=== PATIENT | female | born 1985 | race Caucasian/White ===

== ENCOUNTER 2017-11-17 16:39 | Observation (INO) ==
[2017-11-17] MEDS ORDERED: *HR* Dextrose 50 % in Water (Syg) 50 ML SYRINGE IVP PRN (17:15)
[2017-11-17] MEDS ORDERED: D5% in Water 1,000 ML IVC PRN (17:15)
[2017-11-17] MEDS ORDERED: Dextrose Gel 15 GM/37.5 ML TUBE PO PRN ×2 (17:15)
--- NOTE | 2017-11-17 17:57 | OB/GYN History & Physical ---
Date of Encounter: 11/17/17 Time of Encounter: 18:08 Assessment and Plan (1) 12 weeks gestation of Current visit: Yes Status: Acute (2) Diabetes in Current visit: Yes Status: Acute Plan: - Diet: diabetic diet - low dose sliding scale insulin - Accu Cheks with meals - HgA1c - consult placed to hospitalist for blood glucose control - consult placed to regulatory leader Qualifiers: Diabetes in type: gestational Qualified Code(s): O24.414 - Gestational diabetes mellitus in , insulin controlled (3) Morbid obesity Current visit: Yes Status: Acute History of Present Illness Chief complaint: uncontrolled diabetes HPI: Ms. Martinez is a 32 year old female at 12 +5 weeks directly admitted to post- floor for uncontrolled diabetes in the setting of . complicated by diabetes during , obesity, previous c- section. Patient had normal glucoses with her last child in 2012 until after delivery. Patient was on metformin for 3 months then did not follow up and has not seen a doctor in 4 years. She went for a 3 hours glucose for with a fasting of 179, 1hr 360, 2hr 323, and 3 hr 227 two days ago. Patient presented to the office today and was given her lab results and Dr. Luis brought her into the hospital for uncontrolled diabetic control. This evening at 5:30pm, her glucose was 189 2 hrs after eating. Patient admits to increase thirst. Patient is not experiencing any symptoms of blurring vision, ACKERMAN, parasthesia, abdominal pain, diarrhea, fever, chills. Patient not on insulin previously. Past Med Surg Social Fam HX - Past Medical History Medical history: no medical history Psychiatric history: no psych history - Past Surgical History Surgical History: - Social History Smoking Status: Never smoker Smokeless Tobacco Status: No Alcohol use: none Drug use: none - Family History Father Hx Family Endocrine Disorder: Yes Sister Hx Family Reproductive Disorders: Yes (OV Ca) Obstetrical History - Pregnancies : 2 Para: 1 Term: 1 : 0 Ab's: 0 Livin - History/Complications History/Complications: Total pregnancies 2. Total living children 1. C section(s) 1. # 1: Repeat ,01/18/13,female,7 lbs 11 oz, bottle/breast feeding, ,. Medications and Allergies Ondansetron ODT [Zofran ODT] 8 mg SL Q6HR PRN #20 tab.rapdis 04/15/17 [Rx] Sulfamethoxazole/Trimeth DS [Bactrim DS] 1 each PO BID 7 Days tablet 04/16/17 [ Rx] Cephalexin [Keflex] 500 mg PO BID #14 capsule 10/29/17 [Rx] 3 Allergy/AdvReac Type Severity Reaction Status Date / Time No Known Allergies Allergy Verified 10/28/17 23:38 Review of System OB All systems PM: reviewed and no additional remarkable complaints except as stated Results Result Diagrams: 11/17/17 17:50 11/17/17 17:50 All other labs normal.
[2017-11-17] MEDS ORDERED: Insulin LISPRO 300 UNITS/3 ML VIAL SQ SCH (18:00)
[2017-11-17 18:22] LABS: BUN/Creatinine Ratio 15 (6-26); Blood Urea Nitrogen 10 mg/dL (6-20); Carbon Dioxide 21 mEq/L (23-29); Chloride 106 mEq/L (98-107); Glucose 199 mg/dL (70-105); Osmolality,Calculated 287 (280-300); Potassium 3.9 mEq/L (3.5-5.1); Sodium 136 mEq/L (136-145); eGFR For African Americans > 60 (> 60); eGFR For Non-African Americans > 60 (> 60)
[2017-11-17 18:23] LABS: Uric Acid 3.1 mg/dL (2.3-7.6)
[2017-11-17 18:30] LABS: Hemoglobin A1C 8.2 %
[2017-11-17 18:34] LABS: Basophils % 0.5 %; Eosinophils % 0.3 %; Immature Granulocytes % 0.2 % (0-4); Lymphocytes # 2.3 K/mcL (0.6-4.6); Lymphocytes % 36.3 %; Mean Corpuscular HGB Conc 33.3 g/dL (31.6-35.5); Mean Corpuscular Hemoglobin 29.7 pg (28.0-33.3); Mean Platelet Volume 10.2 fL (9.4-12.4); Monocytes # 0.4 K/mcL (0.0-1.3); Monocytes % 6.5 %; Neutrophils # 3.5 K/mcL (1.6-8.9); Nucleated Red Blood Cells 0.3 /100 WBC (0); Platelet Count 212 K/mcL (140-400); Red Blood Count 4.38 M/mcL (3.82-4.97); Red Cell Distribution Width 13.4 % (11.5-14.5); Segmented Neutrophils % 56.2 %
--- NOTE | 2017-11-17 21:52 | Internal Medicine Consult Note ---
Date of Encounter: 11/17/17 Time of Encounter: 21:49 - Assessment and Plan (1) Diabetes in Current Visit: Yes Status: Acute Assessment and plan: naive to insulin. D/w OB wish to hold metformin due to will attempt to control with ISS. Will start low dose for now AC/HS and titrate up as needed. diabetic education in the morning, diabetic diet once better may follow up outpatient for continued sugar control and check Qualifiers: Diabetes in type: gestational Qualified Code(s): O24.414 - Gestational diabetes mellitus in , insulin controlled (2) Morbid obesity Current Visit: Yes Status: Acute Assessment and plan: diet control, lifestyle mod will help with DM Internal Medicine - CN: HPI - Data of Consult Patient: new to practice Consult date: 11/17/17 Requesting Physician: Garret Luis MD - Consult Narrative Reason for consult: High sugar History of present illness: Ms. Martinez is a 32 year old female who is 13 weeks who presents for associated DMII. HbA1c measured in the ED recorded 8.2. She had been diabetic post- during her first in 2012 and had been placed on metformin for approx 1 month. After the month, her sugar apparently improved and had been off diabetic meds then. She had been doing well until routine check today in the clinic where her sugar was found to be high. She is otherwise asymptomatic. Past Med Surg Social Fam HX - Past Medical History Medical history: no medical history Psychiatric history: no psych history - Past Surgical History Surgical History: - Social History Smoking Status: Never smoker Smokeless Tobacco Status: No Alcohol use: none Drug use: none - Family History Father Hx Family Endocrine Disorder: Yes Sister Hx Family Reproductive Disorders: Yes (OV Ca) Review of systems: ROS 14 point review of systems reviewed as best as possible given presentation. Pertinent positive or negative as per HPI or otherwise reviewed as negative Internal Medicine - CN: Meds Ondansetron ODT [Zofran ODT] 8 mg SL Q6HR PRN #20 tab.rapdis 04/15/17 [Rx] Sulfamethoxazole/Trimeth DS [Bactrim DS] 1 each PO BID 7 Days tablet 04/16/17 [ Rx] Cephalexin [Keflex] 500 mg PO BID #14 capsule 10/29/17 [Rx] 3 Allergy/AdvReac Type Severity Reaction Status Date / Time No Known Allergies Allergy Verified 10/28/17 23:38 Internal Medicine - CN: Exam - Constitutional Vitals: Temp Pulse Resp BP Pulse Ox 98.3 F 95 16 131/84 99 11/17/17 20:00 11/17/17 20:00 11/17/17 20:00 11/17/17 20:00 11/17/17 20:00 Exam: General - AAO x 3 Psych - Appropriate affect/speech. No agitation Heart - Sinus. RRR. S1 and S2 present. No added HS/murmurs appreciated. No elevated JVD appreciated. Lung - Adequate air entry b/l, No crackles/wheezes appreciated GI - . Soft, non-tender. No hepatosplenomegaly/ascites. BS+ - No CVA/suprapubic tenderness or palpable bladder distension Skin - Intact. No rash/petechiae/ecchymosis. Warm extremities MSK - Joints with normal ROM. No joint swellings Internal Medicine - CN: Reslt - Labs CBC & Chem 7: 11/17/17 17:50 11/17/17 17:50 Labs: Short CBC 11/17/17 Range/Units 17:50 WBC 6.3 (4.3-11.1) K/mcL Hgb 13.0 (11.5-15.4) g/dL Hct 39.0 (35.3-44.9) % Plt Count 212 (140-400) K/mcL Neutrophils # 3.5 (1.6-8.9) K/mcL BMP 11/17/17 11/17/17 17:50 17:50 Sodium 136 Potassium 3.9 Chloride 106 Carbon Dioxide 21 L BUN 10 Creatinine 0.68 0.68 Glucose 199 H Calcium 9.0 Liver Function 11/17/17 Range/Units 17:50 AST 12 L (13-39) Units/L ALT 16 (7-52) Units/L Consult Discharge Plan - Plan Referrals: NONE,PCP [Primary Care Provider] -
[2017-11-18] MEDS: Insulin LISPRO 300 UNITS/3 ML VIAL SQ SCH ×2 (07:58→11:46)
[2017-11-18 08:40] VITALS: BP 134/87
[2017-11-18 11:34] LABS: Varicella Zoster IgG Antibody Positive
--- NOTE | 2017-11-18 11:35 | OB/GYN Progress Note ---
Date of Encounter: 11/18/17 Time of Encounter: 11:32 - Assessment and Plan (1) Diabetes in Current Visit: Yes Status: Acute Continue with recommendation per hospitalist. manifest/order organizer print orders to see patient today Follow up in office and with MFM Anticipate discharge home tomorrow Qualifiers: Diabetes in type: gestational Gestational diabetes mellitus control: insulin-controlled Trimester: first trimester Qualified Code(s): O24.414 - Gestational diabetes mellitus in , insulin controlled (2) 12 weeks gestation of Current Visit: Yes Status: Acute (3) Morbid obesity Current Visit: Yes Status: Acute Subjective - Subjective Principal diagnosis: Uncontrolled Diabetes Interval history: Ms Bey states she is feeling well. She denies any headaches, vision changes, epigastric pain, chest pain, vaginal bleeding, cramping, and vaginal discharge. She is agreeable to the plan of care. Antepartum ROS: no new complaints, no loss of fluid, no vaginal bleeding, no contractions Objective - Vital Signs Vital Signs: Vital Signs Temp Pulse Resp BP Pulse Ox 11/18/17 07:40 98.2 F 87 12 134/87 98 11/17/17 20:00 98.3 F 95 16 131/84 99 11/17/17 19:30 14 11/17/17 16:45 98.5 F 105 18 125/73 99 Intake and Output 11/17/17 11/18/17 11/18/17 23:59 07:59 15:59 Intake Total 200 / 200 200 / 200 Output Total 300 / 300 970 / 970 Balance -100 / -100 -770 / -770 Intake: Oral 200 / 200 200 / 200 Output: Urine 300 / 300 970 / 970 Other: Meal Dinner Percent of Meal Consumed 50% Weight 120.656 kg 119.4 kg Blood Glucose* 188 152 Patient Weight 11/18/17 23:59 Weight 119.4 kg - Exam FHR: other FHR comments: 12 week gestation, obese, unable to hear tones. Auscultation: bilateral: normal Abdomen: Present: normal appearance, soft, gravid Uterus: Present: normal. Absent: firm - Labs Labs: Abnormal lab results Nucleated RBCs/100 WBC 0.3 /100 WBC (0) H 11/17/17 17:50 Carbon Dioxide 21 mEq/L (23-29) L 11/17/17 17:50 Glucose 199 mg/dL (70-105) H 11/17/17 17:50 POC Glucose 152 (58-89) H 11/18/17 07:51 Hemoglobin A1c 8.2 % (-5.6) H 11/17/17 17:50 AST 12 Units/L (13-39) L 11/17/17 17:50 Lactate Dehydrogenase 122 Units/L (140-271) L 11/17/17 17:50
[2017-11-18 11:41] LABS: Rubella IgG Antibody Equivocal (POSITIVE)
--- NOTE | 2017-11-18 13:21 | Discharge Summary ---
Date of Encounter: 11/18/17 Time of Encounter: 13:20 - Discharge Diagnosis (1) Diabetes in Priority: Primary Status: Acute Qualifiers: Diabetes in type: gestational Gestational diabetes mellitus control: insulin-controlled Trimester: first trimester Qualified Code(s): O24.414 - Gestational diabetes mellitus in , insulin controlled (2) 12 weeks gestation of Priority: Secondary Status: Acute (3) Morbid obesity Priority: Secondary Status: Acute - Discharge Medications Prescriptions: Alcohol Antiseptic Pads [Pro Comfort Alcohol Pads] 1 each TP ACHS #120 med..pad Blood Sugar Diagnostic, Drum [Accu-Chek Compact] 1 each MC ACHS #120 strip Blood-Glucose Meter, Drum-Type [Accu-Chek] 1 each MC ACHS #1 kit Insulin ASPART [Novolog Flexpen] 2 unit SQ ACHS #1 insuln.pen Lancets [Accu-Chek Safe-T-Pro] 1 each MC ACHS #120 each Home Medications: Ondansetron ODT [Zofran ODT] 8 mg SL Q6HR PRN #20 tab.rapdis 04/15/17 [Rx] Sulfamethoxazole/Trimeth DS [Bactrim DS] 1 each PO BID 7 Days tablet 04/16/17 [ Rx] Cephalexin [Keflex] 500 mg PO BID #14 capsule 10/29/17 [Rx] Alcohol Antiseptic Pads [Pro Comfort Alcohol Pads] 1 each TP ACHS #120 med..pad 11/18/17 [Rx] Blood Sugar Diagnostic, Drum [Accu-Chek Compact] 1 each ACHS #120 strip 11/18 [Rx] Blood-Glucose Meter, Drum-Type [Accu-Chek] 1 each ACHS #1 kit 11/18/17 [Rx] Insulin ASPART [Novolog Flexpen] 2 unit SQ ACHS #1 insuln.pen 11/18/17 [Rx] Lancets [Accu-Chek Safe-T-Pro] 1 each MC ACHS #120 each 11/18/17 [Rx] Allergies/Adverse Reactions: 3 Allergy/AdvReac Type Severity Reaction Status Date / Time No Known Allergies Allergy Verified 10/28/17 23:38 Data Procedures and tests throughout hospitalization: Laboratory Tests 11/17/17 11/17/17 11/17/17 17:38 17:50 17:50 WBC 6.3 RBC 4.38 Hgb 13.0 Hct 39.0 MCV 89.0 MCH 29.7 MCHC 33.3 RDW 13.4 Plt Count 212 MPV 10.2 Immature Gran % 0.2 Seg Neutrophils % 56.2 Lymphocytes % 36.3 Monocytes % 6.5 Eosinophils % 0.3 Basophils % 0.5 Neutrophils # 3.5 Lymphocytes # 2.3 Monocytes # 0.4 Eosinophils # 0.0 Basophils # 0.0 Nucleated RBCs/100 WBC 0.3 H Sodium Potassium Chloride Carbon Dioxide BUN Creatinine 0.68 Est GFR ( Amer) Est GFR (Non-Af Amer) BUN/Creatinine Ratio Glucose POC Glucose 188 H Est Mean Plasma Glucose Hemoglobin A1c Calculated Osmolality Uric Acid 3.1 Calcium AST 12 L ALT 16 Lactate Dehydrogenase 122 L T.pallidum Ab Interpret Hep Bs Antigen Rubella IgG Antibody VZV IgG Antibody Blood Type Antibody Screen 11/17/17 11/17/17 11/17/17 17:50 17:50 17:50 WBC RBC Hgb Hct MCV MCH MCHC RDW Plt Count MPV Immature Gran % Seg Neutrophils % Lymphocytes % Monocytes % Eosinophils % Basophils % Neutrophils # Lymphocytes # Monocytes # Eosinophils # Basophils # Nucleated RBCs/100 WBC Sodium Potassium Chloride Carbon Dioxide BUN Creatinine Est GFR ( Amer) Est GFR (Non-Af Amer) BUN/Creatinine Ratio Glucose POC Glucose Est Mean Plasma Glucose 189 Hemoglobin A1c 8.2 H Calculated Osmolality Uric Acid Calcium AST ALT Lactate Dehydrogenase T.pallidum Ab Interpret Negative Hep Bs Antigen Rubella IgG Antibody Equivocal L VZV IgG Antibody Positive Blood Type A POSITIVE Antibody Screen NEGATIVE 11/17/17 11/17/17 11/18/17 17:50 17:50 07:51 WBC RBC Hgb Hct MCV MCH MCHC RDW Plt Count MPV Immature Gran % Seg Neutrophils % Lymphocytes % Monocytes % Eosinophils % Basophils % Neutrophils # Lymphocytes # Monocytes # Eosinophils # Basophils # Nucleated RBCs/100 WBC Sodium 136 Potassium 3.9 Chloride 106 Carbon Dioxide 21 L BUN 10 Creatinine 0.68 Est GFR ( Amer) > 60 Est GFR (Non-Af Amer) > 60 BUN/Creatinine Ratio 15 Glucose 199 H POC Glucose 152 H Est Mean Plasma Glucose Hemoglobin A1c Calculated Osmolality 287 Uric Acid Calcium 9.0 AST ALT Lactate Dehydrogenase T.pallidum Ab Interpret Hep Bs Antigen Nonreactive Rubella IgG Antibody VZV IgG Antibody Blood Type Antibody Screen 11/18/17 11:35 WBC RBC Hgb Hct MCV MCH MCHC RDW Plt Count MPV Immature Gran % Seg Neutrophils % Lymphocytes % Monocytes % Eosinophils % Basophils % Neutrophils # Lymphocytes # Monocytes # Eosinophils # Basophils # Nucleated RBCs/100 WBC Sodium Potassium Chloride Carbon Dioxide BUN Creatinine Est GFR ( Amer) Est GFR (Non-Af Amer) BUN/Creatinine Ratio Glucose POC Glucose 147 H Est Mean Plasma Glucose Hemoglobin A1c Calculated Osmolality Uric Acid Calcium AST ALT Lactate Dehydrogenase T.pallidum Ab Interpret Hep Bs Antigen Rubella IgG Antibody VZV IgG Antibody Blood Type Antibody Screen Labs on day of discharge: Labs from last 24 hours 11/18/17 11/18/17 11/17/17 11:35 07:51 17:50 WBC RBC Hgb Hct MCV MCH MCHC RDW Plt Count MPV Immature Gran % Seg Neutrophils % Lymphocytes % Monocytes % Eosinophils % Basophils % Neutrophils # Lymphocytes # Monocytes # Eosinophils # Basophils # Nucleated RBCs/100 WBC Sodium Potassium Chloride Carbon Dioxide BUN Creatinine Est GFR ( Amer) Est GFR (Non-Af Amer) BUN/Creatinine Ratio Glucose POC Glucose 147 H 152 H Est Mean Plasma Glucose Hemoglobin A1c Calculated Osmolality Uric Acid Calcium AST ALT Lactate Dehydrogenase T.pallidum Ab Interpret Hep Bs Antigen Nonreactive Rubella IgG Antibody VZV IgG Antibody Blood Type Antibody Screen 11/17/17 11/17/17 11/17/17 17:50 17:50 17:50 WBC RBC Hgb Hct MCV MCH MCHC RDW Plt Count MPV Immature Gran % Seg Neutrophils % Lymphocytes % Monocytes % Eosinophils % Basophils % Neutrophils # Lymphocytes # Monocytes # Eosinophils # Basophils # Nucleated RBCs/100 WBC Sodium 136 Potassium 3.9 Chloride 106 Carbon Dioxide 21 L BUN 10 Creatinine 0.68 Est GFR ( Amer) > 60 Est GFR (Non-Af Amer) > 60 BUN/Creatinine Ratio 15 Glucose 199 H POC Glucose Est Mean Plasma Glucose Hemoglobin A1c Calculated Osmolality 287 Uric Acid Calcium 9.0 AST ALT Lactate Dehydrogenase T.pallidum Ab Interpret Negative Hep Bs Antigen Rubella IgG Antibody Equivocal L VZV IgG Antibody Positive Blood Type A POSITIVE Antibody Screen NEGATIVE 11/17/17 11/17/17 11/17/17 17:50 17:50 17:50 WBC 6.3 RBC 4.38 Hgb 13.0 Hct 39.0 MCV 89.0 MCH 29.7 MCHC 33.3 RDW 13.4 Plt Count 212 MPV 10.2 Immature Gran % 0.2 Seg Neutrophils % 56.2 Lymphocytes % 36.3 Monocytes % 6.5 Eosinophils % 0.3 Basophils % 0.5 Neutrophils # 3.5 Lymphocytes # 2.3 Monocytes # 0.4 Eosinophils # 0.0 Basophils # 0.0 Nucleated RBCs/100 WBC 0.3 H Sodium Potassium Chloride Carbon Dioxide BUN Creatinine 0.68 Est GFR ( Amer) Est GFR (Non-Af Amer) BUN/Creatinine Ratio Glucose POC Glucose Est Mean Plasma Glucose 189 Hemoglobin A1c 8.2 H Calculated Osmolality Uric Acid 3.1 Calcium AST 12 L ALT 16 Lactate Dehydrogenase 122 L T.pallidum Ab Interpret Hep Bs Antigen Rubella IgG Antibody VZV IgG Antibody Blood Type Antibody Screen 11/17/17 17:38 WBC RBC Hgb Hct MCV MCH MCHC RDW Plt Count MPV Immature Gran % Seg Neutrophils % Lymphocytes % Monocytes % Eosinophils % Basophils % Neutrophils # Lymphocytes # Monocytes # Eosinophils # Basophils # Nucleated RBCs/100 WBC Sodium Potassium Chloride Carbon Dioxide BUN Creatinine Est GFR ( Amer) Est GFR (Non-Af Amer) BUN/Creatinine Ratio Glucose POC Glucose 188 H Est Mean Plasma Glucose Hemoglobin A1c Calculated Osmolality Uric Acid Calcium AST ALT Lactate Dehydrogenase T.pallidum Ab Interpret Hep Bs Antigen Rubella IgG Antibody VZV IgG Antibody Blood Type Antibody Screen Date of admission: 11/17/17 16:39 Primary care physician: PCP NONE Consults: 11/17/17 17:15 Consult to Supervisor Small [employer]liance Assembly [CONS] Routine Comment: Reason for Consult: new diabetic who is 13 weeks . Previous gestational diabetes 11/17/17 21:50 Consult to Hospitalist [CONS] Routine Consulting Provider: Hospitalist Radha Reason for Consult: uncontrolled diabetes Time Notified: 09:20 Call Completed: Yes Discharging clinician: Sonia Almeida Anticipated date of discharge: 11/18/17 - Patient Status Disposition: Home, Self-Care Condition: Good Functional capacity at discharge: independent ambulation Overall status at discharge: patient is progressing back to baseline - Discharge Instructions Follow Up With: NONE,PCP [Primary Care Provider] - Garret Luis MD [Partnered Physician] - - Diet and Activity Activity: resume usual activities as tolerated Diet: diabetic diet Hospital Course INVESTIGATOR UTILITY BILL COMPLAINTS Reason for admission: other (Blood sugar control) Time Attestation: Total time spent providing and/or coordinating discharge services: Time Spent: Less than 30 minutes Exam - Constitutional Vitals: Temp Pulse Resp BP Pulse Ox 98.2 F 87 12 134/87 98 11/18/17 07:40 11/18/17 07:40 11/18/17 07:40 11/18/17 07:40 11/18/17 07:40
--- NOTE | 2017-11-18 14:31 | Internal Med Progress Note ---
Date of Encounter: 11/18/17 Time of Encounter: 13:00 - Assessment and plan (1) Diabetes in Current Visit: Yes Status: Acute Assessment and plan: Patient being treated with insulin. She has received 2 units of pre-meal insulin based on her blood sugars per the low correctional sliding scale. Her blood sugars are ranging between 140 and 150. I believe this is currently acceptable baseline to start her insulin regimen at. Preferably she can be discharged on medium or long-acting insulin at 10-15 units per day. However her insurance insurance appears to require prior authorization which may delay her care. As such, she may be discharged on short-acting insulin at the doses that she is currently receiving with changes to be made as outpatient. We will also provide prescriptions for glucometer, blood glucose strips, lancets and alcohol swabs. I recommend she check her blood sugars before meals and at bedtime. She needs close follow-up with her shearing shed worker in clinic to better adjust her insulin regimen based on her response. Qualifiers: Diabetes in type: gestational Gestational diabetes mellitus control: insulin-controlled Trimester: first trimester Qualified Code(s): O24.414 - Gestational diabetes mellitus in , insulin controlled (2) 12 weeks gestation of Current Visit: Yes Status: Acute - Subjective Interval history: Patient is doing well at this time. Tolerating oral diet. No new complaints at this time - Constitutional Vitals: Temp Pulse Resp BP Pulse Ox 98.2 F 87 12 134/87 98 11/18/17 07:40 11/18/17 07:40 11/18/17 07:40 11/18/17 07:40 11/18/17 07:40 General appearance: Present: cooperative, A&O X 3, obese, answers questions appropriately - Respiratory Respiratory exam: Present: CTAB. Absent: accessory muscle use, rales, rhonchi, wheezes - Cardiovascular Cardiovascular exam: Present: RRR, +S1, +S2. Absent: diastolic murmur, gallop, rubs, systolic murmur - GI/Abdominal GI/Abdominal exam: Present: normal bowel sounds, soft, no peritoneal signs. Absent: distended, tenderness Internal Medicine: Result - Labs CBC & Chem 7: 11/17/17 17:50 11/17/17 17:50 Labs: Short CBC 11/17/17 Range/Units 17:50 WBC 6.3 (4.3-11.1) K/mcL Hgb 13.0 (11.5-15.4) g/dL Hct 39.0 (35.3-44.9) % Plt Count 212 (140-400) K/mcL Neutrophils # 3.5 (1.6-8.9) K/mcL BMP 11/17/17 11/17/17 17:50 17:50 Sodium 136 Potassium 3.9 Chloride 106 Carbon Dioxide 21 L BUN 10 Creatinine 0.68 0.68 Glucose 199 H Calcium 9.0 Liver Function 11/17/17 Range/Units 17:50 AST 12 L (13-39) Units/L ALT 16 (7-52) Units/L Consult Discharge Plan - Plan Referrals: NONE,PCP [Primary Care Provider] - Garret Luis MD [Partnered Physician] - Prescriptions: Alcohol Antiseptic Pads [Pro Comfort Alcohol Pads] 1 each ACHS #120 med..pad Blood Sugar Diagnostic, Drum [Accu-Chek Compact] 1 each ACHS #120 strip Blood-Glucose Meter, Drum-Type [Accu-Chek] 1 each ACHS #1 kit Insulin LISPRO [HumaLOG] 4 units SQ TIDWM #1 vial Insulin NPH [HumuLIN NPH] 10 unit SQ QAM AND QHS #1 vial Lancets [Accu-Chek Safe-T-Pro] 1 each ACHS #120 each Syrge-Ndl,Ins 0.3 ml Half Jason [Insulin Syringe] 1 each 5-6XD #1 tub
[2017-11-18] MEDS ORDERED: Insulin LISPRO 300 UNITS/3 ML VIAL SQ SCH (21:00)
== END 2017-11-18 16:15 | disposition home or self-care (01) ==
LOC: 1NENUOBS
PROVIDERS: ADMIT Obstetrics & Gynecology; ATTEND Obstetrics & Gynecology

== ENCOUNTER 2018-05-18 10:02 | Inpatient (IN) ==
[~2018-05-18 10:02] MED LIST: Methylergonovine 0.2 MG/ML AMPUL IM ONE
[2018-05-18] MEDS ORDERED: Ringers Solution, Lactated 1,000 ML ONE ×2 (10:31→12:11)
[2018-05-18] MEDS ORDERED: Naloxone 0.4 MG/ML INJ IVP PRN ×2 (10:47→12:07)
[2018-05-18] MEDS ORDERED: Famotidine 20 MG/2 ML VIAL IVP PRN (10:47)
[2018-05-18] MEDS ORDERED: CeFAZolin Syr 3,000MG/30 ML 3,000 MG/30 ML SYRINGE IVPB ONE (11:02)
[2018-05-18] MEDS ORDERED: Metoclopramide 10 MG/2 ML VIAL IVP ONE (11:03)
[2018-05-18 11:16] LABS: Basophils % 0.4 %; Eosinophils % 0.5 %; Hematocrit 37.1 % (35.3-44.9); Hemoglobin 12.4 g/dL (11.5-15.4); Immature Granulocytes % 0.5 % (0-4); Lymphocytes # 2.3 K/mcL (0.6-4.6); Mean Corpuscular HGB Conc 33.4 g/dL (31.6-35.5); Mean Corpuscular Hemoglobin 30.1 pg (28.0-33.3); Mean Platelet Volume 11.2 fL (9.4-12.4); Monocytes # 0.5 K/mcL (0.0-1.3); Monocytes % 6.2 %; Neutrophils # 5.2 K/mcL (1.6-8.9); Platelet Count 177 K/mcL (140-400); Red Blood Count 4.12 M/mcL (3.82-4.97); Red Cell Distribution Width 14.8 % (11.5-14.5); Segmented Neutrophils % 64.4 %
[2018-05-18] MEDS ORDERED: Ringers Solution, Lactated 1,000 ML IVC ONE (11:18)
[2018-05-18] MEDS ORDERED: 0.9 % Sodium Chloride 1,000 ML ONE (11:27)
[2018-05-18] MEDS ORDERED: Ringers Solution, Lactated 1,000 ML IVC SCH ×2 (11:30→12:15)
[2018-05-18 11:48] LABS: Amphetamine Screen,Urine Negative ng/mL (Cutoff=1000); Barbiturate Screen,Urine Negative ng/mL (Cutoff=200); Benzodiazepines Screen,Urine Negative ng/mL (Cutoff=200); Cannabinoid Screen,Urine Negative ng/mL (Cutoff = 50); Cocaine Screen,Urine Negative ng/mL (Cutoff= 300); Opiate Screen,Urine Negative ng/mL (Cutoff=300); Phencyclidine Screen,Urine Negative ng/mL (Cutoff=25)
--- NOTE | 2018-05-18 11:58 | Anesthesia Evaluation PreOp ---
Date of Encounter: 05/18/18 Time of Encounter: 11:56 - Past History Planned Operation: Csection/spinal Cardiac History: HTN (with ) Pulmonary History: Denies Any Significant HX, ROB Dx (probable, undiagnosed) CRM DYNAMICS DEVELOPER History: Denies Any Significant HX Other Medical History: Other (Gestational diabetes, insulin dependent, Morbid Obesity) Anesthesia History: No Prior Anesthetic Complications, Past Anesthesia ( previous csection, no general anesthesthetic history, no family history of anesthetic related deaths) : Yes Alcohol Use: none Drug use: none Medications and Allergies Ondansetron ODT [Zofran ODT] 8 mg SL Q6HR PRN #20 tab.rapdis 04/15/17 [Rx] Sulfamethoxazole/Trimeth DS [Bactrim DS] 1 each PO BID 7 Days tablet 04/16/17 [ Rx] Cephalexin [Keflex] 500 mg PO BID #14 capsule 10/29/17 [Rx] Alcohol Antiseptic Pads [Pro Comfort Alcohol Pads] 1 each ACHS #120 med..pad 11/18/17 [Rx] Blood Sugar Diagnostic, Drum [Accu-Chek Compact] 1 each ACHS #120 strip 11/18 [Rx] Blood-Glucose Meter, Drum-Type [Accu-Chek] 1 each ACHS #1 kit 11/18/17 [Rx] Insulin LISPRO [HumaLOG] 4 units SQ TIDWM #1 vial 11/18/17 [Rx] Insulin NPH [HumuLIN NPH] 10 unit SQ QAM AND QHS #1 vial 11/18/17 [Rx] Lancets [Accu-Chek Safe-T-Pro] 1 each ACHS #120 each 11/18/17 [Rx] Syrge-Ndl,Ins 0.3 ml Half Jason [Insulin Syringe] 1 each 5-6XD #1 tub [Rx] Amoxicillin 875 mg PO BID #20 tablet 02/21/18 [Rx] Guaifenesin [Mucinex] 600 mg PO BID #20 tab.er.12h 02/21/18 [Rx] Loratadine [Allergy Relief] 10 mg PO DAILY #30 tablet 02/21/18 [Rx] Adult Aspirin 05/18/18 [History] 3 Allergy/AdvReac Type Severity Reaction Status Date / Time No Known Allergies Allergy Verified 02/21/18 19:47 - Meds/Allergy Pre-op Review Medications Reviewed: Yes Allergies Reviewed: Yes Beta Blockers on Current Med List: No Anesthesia Results - Labs 05/18/18 10:38 05/18/18 10:38 Anesthesia Exam BP 136/86 P 96 R 16 T 97.5 Blood glucose: 80 Height: 5'4" Weight: 138.6kg NPO (# of Hours): 12 Pain Scale: 0 Pain Scale Used: Numeric (1 - 10) - HEENT Pupil (Motor): Pupils equal Mallampati: II Teeth: Normal Oral Opening: Greater than 3 - CRM DYNAMICS DEVELOPER LOC: Oriented CRM DYNAMICS DEVELOPER Motor: Normal RUE, Normal LUE, Normal RLE, Normal LLE, Normal Face CRM DYNAMICS DEVELOPER Sensory: Normal: RUE, LUE, RLE, LLE, Face - Cardiac Rhythm: Regular Murmur: None JVD: No Carotid Bruit: No - Pulmonary Breath Sounds: bilateral Clear Respiratory Effort: Symmetrical Anesthesia Assess/Plan ASA Score: 3 Modified John Paul Scale for Level of Consciousness: Cooperative, oriented, and tranquil Anesthetic Plan: Regional Autologous Blood: No Monitoring Plan: Standard Monitors Recovery Plan: PACU
[2018-05-18] MEDS ORDERED: Acetaminophen IV 1,000 MG/100 ML INFUS..BTL IVPB ONE (12:06)
[2018-05-18] MEDS ORDERED: *HR* OxyCODONE Immed Rel 5 MG TABLET PO PRN (12:06)
[2018-05-18] MEDS ORDERED: *HR* Labetalol 20 MG/4 ML SYRINGE IVP PRN (12:07)
[2018-05-18] MEDS ORDERED: *HR* Meperidine 25 MG/ML SYRINGE IVP PRN (12:07)
[2018-05-18] MEDS ORDERED: *HR* Promethazine 25 MG/ML VIAL IVP PRN (12:07)
[2018-05-18] MEDS ORDERED: Ondansetron 4 MG/2 ML VIAL IVP ONE (12:07)
[2018-05-18] MEDS ORDERED: Bupivacaine/PF 0.75% in Dex 2 ML AMPUL INFILT ONE (12:10)
[2018-05-18] MEDS ORDERED: Lidocaine -MPF 1% 5 ML AMPUL ONE (12:10)
[2018-05-18] MEDS ORDERED: Morphine Sulfate/PF 5mg/10mL Vial ONE (12:14)
--- NOTE | 2018-05-18 12:28 | OB/GYN History & Physical ---
Date of Encounter: 05/18/18 Time of Encounter: 12:21 Assessment and Plan (1) 38 weeks gestation of Current visit: Yes Status: Acute (2) Gestational diabetes mellitus (GDM) requiring insulin Current visit: Yes Status: Acute Admit to labor and delivery Scheduled section Anticipate length of stay 2 days History of Present Illness Chief complaint: section HPI: Ms. Bey is a 33 year old female presents to labor and delivery for scheduled repeat section. course complicated by maternal obesity and gestational diabetes requiring insulin control managed by MFM. care with Dr. Luis. No other complications. No past medical history. Labs:A+, Varicella immune and rubella non-immune, all other serologies negative Past Med Surg Social Fam HX - Past Medical History Medical history: diabetes (gestational diabetes), other Additional medical history: gestational diabetic Psychiatric history: no psych history - Past Surgical History Surgical History: - Social History Smoking Status: Never smoker Smokeless Tobacco Status: No Alcohol use: none Drug use: none - Family History Father Living Status: Still Living Hx Family Endocrine Disorder: Yes (low blood sugard) Obstetrical History - Pregnancies : 2 Para: 1 Term: 1 : 0 Ab's: 0 Livin Medications and Allergies Ondansetron ODT [Zofran ODT] 8 mg SL Q6HR PRN #20 tab.rapdis 04/15/17 [Rx] Sulfamethoxazole/Trimeth DS [Bactrim DS] 1 each PO BID 7 Days tablet 04/16/17 [ Rx] Cephalexin [Keflex] 500 mg PO BID #14 capsule 10/29/17 [Rx] Alcohol Antiseptic Pads [Pro Comfort Alcohol Pads] 1 each ACHS #120 med..pad 11/18/17 [Rx] Blood Sugar Diagnostic, Drum [Accu-Chek Compact] 1 each ACHS #120 strip 11/18 [Rx] Blood-Glucose Meter, Drum-Type [Accu-Chek] 1 each ACHS #1 kit 11/18/17 [Rx] Insulin LISPRO [HumaLOG] 4 units SQ TIDWM #1 vial 11/18/17 [Rx] Insulin NPH [HumuLIN NPH] 10 unit SQ QAM AND QHS #1 vial 11/18/17 [Rx] Lancets [Accu-Chek Safe-T-Pro] 1 each ACHS #120 each 11/18/17 [Rx] Syrge-Ndl,Ins 0.3 ml Half Jason [Insulin Syringe] 1 each 5-6XD #1 tub [Rx] Amoxicillin 875 mg PO BID #20 tablet 02/21/18 [Rx] Guaifenesin [Mucinex] 600 mg PO BID #20 tab.er.12h 02/21/18 [Rx] Loratadine [Allergy Relief] 10 mg PO DAILY #30 tablet 02/21/18 [Rx] Adult Aspirin 05/18/18 [History] 3 Allergy/AdvReac Type Severity Reaction Status Date / Time No Known Allergies Allergy Verified 02/21/18 19:47 Exam - Constitutional Constitutional: well developed, well nourished, no acute distress, obese - Neck Neck exam: full ROM - Lungs Respiratory exam: CTAB - Cardiovascular Cardiovascular exam: RRR - Abdomen Abdomen: Present: gravid, non tender - Extremities Extremities exam: normal capillary refill, normal inspection Results Result Diagrams: 05/18/18 10:38 05/18/18 10:38 Abnormal lab results RDW 14.8 % (11.5-14.5) H 05/18/18 10:38 All other labs normal.
[2018-05-18] MEDS ORDERED: EPHEDrine 50 MG/ML VIAL ONE (12:51)
--- NOTE | 2018-05-18 13:08 | Anesthesia Procedures ---
Date of Encounter: 05/18/18 Time of Encounter: 12:45 Procedures: Anesthesia - Epidural/Spinal Patient ID/Chart reviewed: Yes Patient examined: Yes OB Eval: Gestational age: 39 OB Eval: : 2 OB Eval: Hx Para: 1 OB Eval: Contractions: Non-stressed pattern Consent Obtained: Yes Supplemental Oxygen: None/Room Air Site Prep: Aseptic Technique, Sterile prep and drape, Povidone-Iodine 1% Patient position: upright Local Anesthetic: Lidocaine 1% Amount of Local Anesthetic used: 3 Interspace Used: L3-L4 Blood: No CSF: Yes Paresthesia: No Spinal Needle Gauge: 25 Spinal Dose: Bupivicaine 0.75% 1.6ml Morphine 250mcg Procedure: Intrathecal dose administered 1st pass in upright position by Marii THORNTON without any immediate noted complications. VSS. Supine for section procedure. Vitals + FHT's: See anesthesia OR record
[2018-05-18] MEDS ORDERED: Ondansetron 4 MG/2 ML VIAL ONE (13:09)
[2018-05-18] MEDS ORDERED: *HR* Oxytocin 10 UNIT/ML VIAL IM ONE (13:09)
[2018-05-18] MEDS ORDERED: Dexamethasone 4 MG/ML VIAL ONE (13:09)
[2018-05-18] MEDS ORDERED: *HR* Dextrose 50 % in Water (Syg) 50 ML SYRINGE ONE (14:06)
[2018-05-18] MEDS ORDERED: Acetaminophen 325 MG TABLET PO PRN (14:22)
[2018-05-18] MEDS ORDERED: Ondansetron 4 MG/2 ML VIAL IVP PRN (14:22)
[2018-05-18] MEDS ORDERED: Metoclopramide 10 MG/2 ML VIAL IVP PRN (14:22)
[2018-05-18] MEDS ORDERED: Simethicone 80 MG TAB.CHEW PO PRN (14:22)
[2018-05-18] MEDS ORDERED: Sennosides 8.6 MG TABLET PO PRN (14:22)
[2018-05-18] MEDS ORDERED: Oxytocin 20 units/ LR 1000 mL 20 UNIT/1,000 ML BAG IVC SCH (14:30)
[2018-05-18] MEDS: *HR* OxyCODONE/APAP 5/325 TABLET PO PRN ×2 (17:03→21:16)
[2018-05-18] MEDS: Ibuprofen 600 MG TABLET PO PRN (20:39)
--- NOTE | 2018-05-18 22:29 | Anesthesia Evaluation Post Op ---
Date of Encounter: 05/18/18 Time of Encounter: 16:00 - Vital Signs Vital Signs: Vital Signs Temperature 98.0 F 05/18/18 15:20 Pulse Rate 74 05/18/18 15:20 Respiratory Rate 16 05/18/18 15:20 Blood Pressure 132/70 05/18/18 15:20 O2 Sat by Pulse Oximetry 99 05/18/18 15:20 Temperature 99 F 05/18/18 20:30 Pulse Rate 97 05/18/18 20:30 Respiratory Rate 18 05/18/18 20:30 Blood Pressure 130/72 05/18/18 20:30 O2 Sat by Pulse Oximetry 97 05/18/18 20:30 - Lungs Lungs: Clear Ascult./Percussion - Airway Airway: Non-obstructed - Cardiovascular Regular Rate - Mental Status Mental Status: Alert & Oriented, Answers Appropriately - Pain Pain Scale: 0 Pain Scale used: Numeric (1 - 10) - Nausea Vomiting Nausea Vomiting: Not Present - Hydration Hydration: NPO, Bowden catheter - Discharge PostOp Status: Transfer Patient to floor
[2018-05-19] MEDS: *HR* OxyCODONE/APAP 5/325 TABLET PO PRN ×4 (01:16→20:25)
--- NOTE | 2018-05-19 02:43 | OB/GYN Procedure Note ---
Section - Date of procedure: 05/18/18 Preop diagnosis: desires repeat Post-op diagnosis: same (Uterine adhesions. Uterus to anterior abdominal wall and omentum to posterior uterus. Polyhydramnios) Procedure: repeat low transverse, other (Lysis of adhesions/uterus to anterior abdominal wall and omentum to posterior uterus) Surgeon: Garret Loyd Blood Loss: 700 Was there an sales assistant displays present: No Laminator Hand: Philipp Trevino Anesthesia Type: Spinal section complications: none Disposition: PACU Specimens: Placenta - (s) Infant A Delivery Date: 05/18/18 Delivery Time: 13:12 Presentation: vertex Position: JEANNETTE Gender: Male Pounds: 9 Ounces: 13 Gram Weight: 4.45 kg at 1 minute: 9 at 5 minutes: 9 Shoulder Dystocia: not encountered Placenta: complete extraction - Narrative Narrative: Patient was taken to the operating room. After satisfactory anesthesia was achieved, patient placed in supine position Bowden catheter inserted and prepped and draped in usual manner. After appropriate timeout, the abdomen was entered through standard Maylard incision. The Sharon retractor was placed. The uterus to abdominal wall adhesion was clamped cut and suture ligated with a 2-0 Vicryl. The peritoneum overlying the lower uterine segment was incised in U- shaped fashion. Uterine cavity was entered sharply and extended laterally. Fluid was clear and consistent with polyhydramnios. With fundal pressure and vacuum assistance the head was delivered. The remainder of the was delivered without difficulty. The umbilical cord doubly clamped and cut and the was handed to nursery staff for further evaluation. Placenta was removed. The uterus was closed with 0 Monocryl in a subcuticular manner. Attention was then turned to the omental adhesions to the posterior uterus. These were doubly clamped cut and suture ligated with a 2-0 Vicryl. After assurance of hemostasis, the retractor was removed. The abdomen was closed using 0 Vicryl on the fascia, 2-0 chromic on the subcutaneous tissue, and 3-0 Monocryl in the skin. Sterile dressing was applied. Patient did well was taken to recovery room in satisfactory condition. Counts were correct.
[2018-05-19] MEDS: Ibuprofen 600 MG TABLET PO PRN ×3 (03:58→20:25)
[2018-05-19 04:32] LABS: Basophils % 0.2 %; Hematocrit 31.7 % (35.3-44.9); Immature Granulocytes % 0.5 % (0-4); Lymphocytes # 2.4 K/mcL (0.6-4.6); Lymphocytes % 20.3 %; Mean Corpuscular HGB Conc 33.1 g/dL (31.6-35.5); Mean Corpuscular Hemoglobin 29.5 pg (28.0-33.3); Monocytes # 0.7 K/mcL (0.0-1.3); Monocytes % 5.9 %; Neutrophils # 8.7 K/mcL (1.6-8.9); Platelet Count 171 K/mcL (140-400); Red Blood Count 3.56 M/mcL (3.82-4.97); Red Cell Distribution Width 15.3 % (11.5-14.5); Segmented Neutrophils % 73.1 %
[2018-05-19 04:48] LABS: Hemoglobin 10.5 g/dL (11.5-15.4)
[2018-05-19] MEDS: Prenatal Vit/FA 1 EACH TABLET PO SCH (07:55)
--- NOTE | 2018-05-19 09:26 | OB/GYN Progress Note ---
Date of Encounter: 05/19/18 Time of Encounter: 09:23 - Assessment and Plan (1) Status post repeat low transverse section Current Visit: Yes Status: Acute continue routine postop care (2) Gestational diabetes mellitus (GDM) requiring insulin Current Visit: Yes Status: Acute Continue insulin per [facility] recommendations Subjective - Subjective Principal diagnosis: s/p repeat c/s, IDDM Interval history: Patient in bed. Denies any pain at this time. Patient is waiting on [facility] to call her back about her insulin doses. Patient reports she was so high of a dose they want to continue it and taper her down following delivery. Patient reports: pain well controlled, ambulating normally, other (catheter out at 0600) Howell: doing well, bottle feeding Objective - Vital Signs Latest vital signs: Vital Signs Temp Pulse Pulse Resp BP Pulse Ox 05/19/18 08:14 98.0 F 83 16 84/81 98 05/19/18 08:06 16 05/19/18 03:59 98.6 F 97 16 112/72 99 05/19/18 00:11 98.6 F 100 16 124/76 99 05/18/18 20:30 99 F 97 18 130/72 97 05/18/18 18:20 98.4 F 89 89 14 117/79 98 05/18/18 17:20 98.4 F 80 12 138/81 98 05/18/18 15:50 98.3 F 80 12 135/85 99 05/18/18 15:20 98.0 F 74 16 132/70 99 Intake and Output 05/18/18 05/19/18 05/19/18 23:59 07:59 15:59 Intake Total 240 / 240 800 / 800 Output Total 650 / 650 550 / 550 Balance -410 / -410 250 / 250 Intake: Oral 240 / 240 800 / 800 Output: Catheter 650 / 650 550 / 550 Other: Weight 132.086 kg Blood Glucose* 113 Patient Weight 05/19/18 23:59 Weight 132.086 kg - Exam Lungs: bilateral: normal Chest: Normal S1, Normal S2 Extremities: Present: normal Abdomen: Present: normal appearance, soft Incision: Present: normal, dry, intact, other (MAKENZIE dressing) Fundal Height: 2 (U/2) - Labs Labs: Laboratory Results - last 24 hr 05/18/18 05/18/18 05/18/18 10:38 10:38 10:38 WBC 8.1 RBC 4.12 Hgb 12.4 Hct 37.1 MCV 90.0 MCH 30.1 MCHC 33.4 RDW 14.8 H Plt Count 177 MPV 11.2 Immature Gran % 0.5 Seg Neutrophils % 64.4 Lymphocytes % 28.0 Monocytes % 6.2 Eosinophils % 0.5 Basophils % 0.4 Neutrophils # 5.2 Lymphocytes # 2.3 Monocytes # 0.5 Eosinophils # 0.0 Basophils # 0.0 Glucose 80 POC Glucose Urine Opiates Screen Negative Ur Barbiturates Screen Negative Ur Phencyclidine Scrn Negative Ur Amphetamines Screen Negative U Benzodiazepines Scrn Negative Urine Cocaine Screen Negative U Marijuana (THC) Screen Negative Ur Drug Screen Interp See Below 05/18/18 05/19/18 05/19/18 20:14 04:08 04:08 WBC 11.9 H RBC 3.56 L Hgb 10.5 L D Hct 31.7 L MCV 89.0 MCH 29.5 MCHC 33.1 RDW 15.3 H Plt Count 171 MPV 11.0 Immature Gran % 0.5 Seg Neutrophils % 73.1 Lymphocytes % 20.3 Monocytes % 5.9 Eosinophils % 0.0 Basophils % 0.2 Neutrophils # 8.7 Lymphocytes # 2.4 Monocytes # 0.7 Eosinophils # 0.0 Basophils # 0.0 Glucose 74 POC Glucose 113 H Urine Opiates Screen Ur Barbiturates Screen Ur Phencyclidine Scrn Ur Amphetamines Screen U Benzodiazepines Scrn Urine Cocaine Screen U Marijuana (THC) Screen Ur Drug Screen Interp
[2018-05-20] MEDS: *HR* OxyCODONE/APAP 5/325 TABLET PO PRN ×2 (00:35→08:07)
[2018-05-20] MEDS: Ibuprofen 600 MG TABLET PO PRN ×2 (02:31→08:07)
[2018-05-20] MEDS: Prenatal Vit/FA 1 EACH TABLET PO SCH (08:06)
[2018-05-20 08:16] VITALS: BP 141/84
--- NOTE | 2018-05-20 08:52 | Discharge Summary ---
Date of Encounter: 05/20/18 Time of Encounter: 08:44 - Discharge Diagnosis (1) anemia Priority: Secondary Status: Acute Comments: Continue taking iron once daily (2) Status post repeat low transverse section Priority: Primary Status: Acute Comments: Pain well controlled with by mouth pain meds Tolerating regular diet Voiding independently Passing flatus, but no BM yet Lochia light Ambulating independently Bottlefeeding Discharge home today (3) Morbid obesity Priority: Secondary Status: Acute - Discharge Medications Prescriptions: OxyCODONE/APAP 5/325 [Percocet 5/325 MG] 1 each PO Q4HR PRN 5 Days #30 tablet PRN Reason: Moderate pain 4-6 Ibuprofen [Motrin] 600 mg PO Q6HR PRN #30 tablet PRN Reason: Cramping Docusate [Colace] 100 mg PO BID #60 capsule Home Medications: Ondansetron ODT [Zofran ODT] 8 mg SL Q6HR PRN #20 tab.rapdis 04/15/17 [Rx] Sulfamethoxazole/Trimeth DS [Bactrim Ds] 1 each PO BID 7 Days tablet 04/16/17 [ Rx] Cephalexin [Keflex] 500 mg PO BID #14 capsule 10/29/17 [Rx] Alcohol Antiseptic Pads [Pro Comfort Alcohol Pads] 1 each ACHS #120 med..pad 11/18/17 [Rx] Blood Sugar Diagnostic, Drum [Accu-Chek Compact Plus Strips] 1 each ACHS # 120 strip 11/18/17 [Rx] Blood-Glucose Meter, Drum-Type [Accu-Chek] 1 each ACHS #1 kit 11/18/17 [Rx] Insulin LISPRO [HumaLOG] 4 units SQ TIDWM #1 vial 11/18/17 [Rx] Insulin NPH [HumuLIN NPH] 10 unit SQ QAM AND QHS #1 vial 11/18/17 [Rx] Lancets [Accu-Chek Safe-T-Pro] 1 each ACHS #120 each 11/18/17 [Rx] Syrge-Ndl,Ins 0.3 ml Half Jason [Insulin Syringe] 1 each 5-6XD #1 tub [Rx] Amoxicillin 875 mg PO BID #20 tablet 02/21/18 [Rx] Guaifenesin [Mucinex] 600 mg PO BID #20 tab.er.12h 02/21/18 [Rx] Loratadine [Allergy Relief] 10 mg PO DAILY #30 tablet 02/21/18 [Rx] Adult Aspirin 05/18/18 [History] Acetaminophen [Tylenol] 325 mg PO Q6HR PRN tablet 05/20/18 [Rx] Docusate [Colace] 100 mg PO BID #60 capsule 05/20/18 [Rx] Ferrous Sulfate 325 mg PO DAILY tablet 05/20/18 [Rx] Ibuprofen [Motrin] 600 mg PO Q6HR PRN #30 tablet 05/20/18 [Rx] OxyCODONE/APAP 5/325 [Percocet 5/325 MG] 1 each PO Q4HR PRN 5 Days #30 tablet [Rx] Vit/FA 1 each PO DAILY tablet 05/20/18 [Rx] Simethicone [Gas-X] 80 mg PO TID PRN tab.chew 05/20/18 [Rx] Allergies/Adverse Reactions: 3 Allergy/AdvReac Type Severity Reaction Status Date / Time No Known Allergies Allergy Verified 02/21/18 19:47 Data Procedures and tests throughout hospitalization: Laboratory Tests 05/18/18 05/18/18 05/18/18 10:38 10:38 10:38 WBC 8.1 RBC 4.12 Hgb 12.4 Hct 37.1 MCV 90.0 MCH 30.1 MCHC 33.4 RDW 14.8 H Plt Count 177 MPV 11.2 Immature Gran % 0.5 Seg Neutrophils % 64.4 Lymphocytes % 28.0 Monocytes % 6.2 Eosinophils % 0.5 Basophils % 0.4 Neutrophils # 5.2 Lymphocytes # 2.3 Monocytes # 0.5 Eosinophils # 0.0 Basophils # 0.0 Glucose 80 POC Glucose Urine Opiates Screen Negative Ur Barbiturates Screen Negative Ur Phencyclidine Scrn Negative Ur Amphetamines Screen Negative U Benzodiazepines Scrn Negative Urine Cocaine Screen Negative U Marijuana (THC) Screen Negative Ur Drug Screen Interp See Below 05/18/18 05/18/18 05/18/18 14:00 14:01 14:36 WBC RBC Hgb Hct MCV MCH MCHC RDW Plt Count MPV Immature Gran % Seg Neutrophils % Lymphocytes % Monocytes % Eosinophils % Basophils % Neutrophils # Lymphocytes # Monocytes # Eosinophils # Basophils # Glucose POC Glucose 57 L 56 L 78 Urine Opiates Screen Ur Barbiturates Screen Ur Phencyclidine Scrn Ur Amphetamines Screen U Benzodiazepines Scrn Urine Cocaine Screen U Marijuana (THC) Screen Ur Drug Screen Inter 05/18/18 05/18/18 05/19/18 16:04 20:14 04:08 WBC 11.9 H RBC 3.56 L Hgb 10.5 L D Hct 31.7 L MCV 89.0 MCH 29.5 MCHC 33.1 RDW 15.3 H Plt Count 171 MPV 11.0 Immature Gran % 0.5 Seg Neutrophils % 73.1 Lymphocytes % 20.3 Monocytes % 5.9 Eosinophils % 0.0 Basophils % 0.2 Neutrophils # 8.7 Lymphocytes # 2.4 Monocytes # 0.7 Eosinophils # 0.0 Basophils # 0.0 Glucose POC Glucose 89 113 H Urine Opiates Screen Ur Barbiturates Screen Ur Phencyclidine Scrn Ur Amphetamines Screen U Benzodiazepines Scrn Urine Cocaine Screen U Marijuana (THC) Screen Ur Drug Screen Inter 05/19/18 05/19/18 04:08 12:38 WBC RBC Hgb Hct MCV MCH MCHC RDW Plt Count MPV Immature Gran % Seg Neutrophils % Lymphocytes % Monocytes % Eosinophils % Basophils % Neutrophils # Lymphocytes # Monocytes # Eosinophils # Basophils # Glucose 74 POC Glucose 90 Urine Opiates Screen Ur Barbiturates Screen Ur Phencyclidine Scrn Ur Amphetamines Screen U Benzodiazepines Scrn Urine Cocaine Screen U Marijuana (THC) Screen Ur Drug Screen [facility] Labs on day of discharge: Labs from last 24 hours 05/19/18 05/18/18 05/18/18 12:38 16:04 14:36 POC Glucose 90 89 78 05/18/18 05/18/18 14:01 14:00 POC Glucose 56 L 57 L Date of admission: 05/18/18 10:02 Primary care physician: PCP NONE Discharging clinician: Sonia Hernandez Anticipated date of discharge: 05/20/18 - Patient Status Disposition: Home, Self-Care Condition: Good Functional capacity at discharge: independent ambulation Overall status at discharge: patient is progressing back to baseline - Discharge Instructions Follow Up With: NONE,PCP [Primary Care Provider] - Garret Luis MD [Partnered Physician] - - Diet and Activity Activity: increase activity as tolerated Diet: regular diet Hospital Course Procedures: RLTCS Reason for admission: section, IUP at term Delivery: section Episiotomy: none Laceration: none Other procedures: none complications: none Discharge diagnosis: IUP at term delivered baby: male Time Attestation: Total time spent providing and/or coordinating discharge services: Time Spent: Less than 30 minutes - VTE Documentation of Mechanical Device: Intermittent pneumatic compression device Exam - Constitutional Vitals: Temp Pulse Resp BP Pulse Ox 97.8 F 81 16 141/84 99 05/20/18 07:30 05/20/18 07:30 05/20/18 07:30 05/20/18 07:30 05/19/18 19:40 General appearance IM: A&O X 3 - Respiratory Respiratory exam: Present: CTAB - Cardiovascular Cardiovascular exam IM: Present: RRR, +S1, +S2 - GI/Abdominal GI/Abdominal exam IM: normal bowel sounds, no peritoneal signs Incision: normal, dry, dressed - Rectal Rectal exam: deferred - Uterine Tone: Firm Uterus Position: At Umbilicus, Midline - Extremities Exam Extremities exam IM: Present: normal capillary refill, normal inspection, radial pulses palpable and symmetrical - Neurological Exam Neurological exam: alert, CN II-XII intact, normal gait, oriented X3, reflexes normal, no focal deficits, strengths equal and symetr throughout - Psychiatric Additional comments: Patient denies history of depression and anxiety. Signs and symptoms of depression discussed with patient and partner and both verbalize understanding of when to seek help. - Other Additional findings: Breasts: Soft, nontender
== END 2018-05-20 11:25 | disposition home or self-care (01) | DRG 540 ==
LOC: 1NENULAB 10:02 → 1NENUOBS 14:12
PROVIDERS: ADMIT Obstetrics & Gynecology; ATTEND Obstetrics & Gynecology